=== PATIENT | male | born 1940 | race Caucasian/White ===

== ENCOUNTER 2017-10-11 08:56 | Emergency (ER) | payer OTHER ==
[~2017-10-11] VITALS: Ht 172.7 cm; Wt 96.4 kg
[2017-10-11 09:03] VITALS: BP 146/67; TEMP 97.1
[2017-10-11] MEDS ORDERED: ASPIRIN 81M81 MG/TA2 PO (09:45)
[2017-10-11] MEDS ORDERED: CENTRUM SILVER1 CTB PO (09:45)
[2017-10-11] MEDS ORDERED: PRINIVIL2.5 MG PO (09:45)
[2017-10-11] MEDS ORDERED: GLUCOPHAGE500 MG/TAB PO (09:45)
[2017-10-11] MEDS ORDERED: GLUCOTROL10 MG PO (09:46)
[2017-10-11] MEDS ORDERED: PROTONIX20 MG PO (09:46)
[2017-10-11] MEDS ORDERED: PLAVIX 75MG TAB75 MG PO (09:47)
[2017-10-11 10:18] VITALS: PULSE 71
== END 2017-10-11 10:17 | disposition home or self-care (01) ==
LOC: COL.ER 08:56
DX: L60.0 Ingrowing nail (principal); E11.9 Type 2 diabetes mellitus without complications; Z79.84 Long term (current) use of oral hypoglycemic drugs; Z79.82 Long term (current) use of aspirin; Z79.02 Long term (current) use of antithrombotics/antiplatelets